=== PATIENT | female | born 1985 | race Caucasian/White ===

== ENCOUNTER → 2018-01-11 | Outpatient (CLI) | payer BC ==
[~2018-01-11] VITALS: Ht 160 cm; Wt 111.1 kg
[~2018-01-11] MED LIST: ATIVAN0.5 MG PO; CELEXA20 MG PO; ENDOCET 5-3251 EACH PO; MICROGESTIN FE1 EACH PO; MOTRIN800 MG PO; PAXIL20 MG PO; PREFERA-OB P1 TABLET PO; PRENATAL TABLE1 EAC3 PO; PRILOSEC20 MG PO; TYLENOL EXTRA500 MG PO; WOMEN'S MULTI200 MCG PO; YAZ 28 TABLET1 EACH PO
== END | disposition home or self-care (01) ==
LOC: AMB 09:51
PROC: 0DJ08ZZ Inspection of Upper Intestinal Tract, Via Natural or Artificial Opening Endoscopic (ICD-10-PCS; principal; 2018-01-11)
DX: Z01.818 Encounter for other preprocedural examination (principal); K21.9 Gastro-esophageal reflux disease without esophagitis; K44.9 Diaphragmatic hernia without obstruction or gangrene; K31.7 Polyp of stomach and duodenum; E66.01 Morbid (severe) obesity due to excess calories; Z68.41 Body mass index [BMI] 40.0-44.9, adult; F32.9 Major depressive disorder, single episode, unspecified; F41.9 Anxiety disorder, unspecified

== ENCOUNTER 2018-03-01 09:23 | Inpatient (IN) | payer BC ==
[~2018-03-01] VITALS: Ht 160 cm; Wt 108.9 kg
[2018-04-25 11:14] VITALS: BP 120/70
[2018-04-25] MEDS ORDERED: ACTIGALL300 MG PO (18:12)
[2018-04-25] MEDS ORDERED: DILAUDID4 MG PO (18:12)
[2018-04-25] MEDS ORDERED: COLACE100 MG PO (18:12)
[2018-04-25] MEDS ORDERED: ZOFRAN ODT8 MG PO (18:12)
[2018-04-25] MEDS ORDERED: PRILOSEC20 MG PO (18:12)
[2018-04-25 19:44] VITALS: BP 140/89
[2018-04-25 23:44] VITALS: BP 120/78
[2018-04-26 04:05] VITALS: BP 131/71
[2018-04-26 06:12] LABS: HEMATOCRIT 39.2 % (36.0-46.0); MCH 27.8 PG (29.0-34.0); MCHC 33.2 G/DL (30.0-36.0); MCV 83.9 FL (83-99); PLATELET COUNT 337 K/uL (156-360); RBC DIS.WIDTH-CV 13.2 % (11.8-14.6); RBC DIS.WIDTH-SD 39.7 % (39-53); RED BLOOD COUNT 4.67 M/uL (3.80-5.20); WHITE BLOOD COUNT 15.4 K/uL (4.1-10.2)
[2018-04-26 06:34] LABS: CHLORIDE 100 MEQ/L (99-109); CREATININE 0.5 MG/DL (0.6-1.3); GFR ESTIMATE (CALCULATED) > 59 mL/min/; GLUCOSE 110 mg/dL (70-99); POTASSIUM 4.2 MEQ/L (3.7-5.4); SODIUM 133 MEQ/L (136-147); UREA NITROGEN (BUN) 5 mg/dL (9-23)
[2018-04-26 09:08] VITALS: BP 134/75
[2018-04-26 11:51] VITALS: BP 116/72
[2018-04-26 15:30] VITALS: BP 154/82
[2018-04-26 19:23] VITALS: BP 135/79
[2018-04-26 23:55] VITALS: BP 148/80
[2018-04-27 03:56] VITALS: BP 135/78
[2018-04-27 06:10] LABS: HEMATOCRIT 39.6 % (36.0-46.0); MCH 27.1 PG (29.0-34.0); MCHC 32.8 G/DL (30.0-36.0); MCV 82.5 FL (83-99); PLATELET COUNT 354 K/uL (156-360); RBC DIS.WIDTH-CV 13.4 % (11.8-14.6); RBC DIS.WIDTH-SD 39.6 % (39-53); WHITE BLOOD COUNT 12.1 K/uL (4.1-10.2)
[2018-04-27 06:37] LABS: CHLORIDE 103 MEQ/L (99-109); CREATININE 0.6 MG/DL (0.6-1.3); GFR ESTIMATE (CALCULATED) > 59 mL/min/; GLUCOSE 91 mg/dL (70-99); POTASSIUM 4.3 MEQ/L (3.7-5.4); SODIUM 136 MEQ/L (136-147); UREA NITROGEN (BUN) 3 mg/dL (9-23)
[2018-04-27 06:57] VITALS: BP 143/67
== END 2018-04-27 11:04 | disposition home or self-care (01) | DRG 620 ==
LOC: 2SOUTH → ENRESERV 04-24 22:05 → 2SOUTH 04-25 10:19 → ENRESERV 04-25 14:48 → 2EAST 04-25 19:21
PROVIDERS: Surgery
PROC: 0DB64Z3 Excision of Stomach, Percutaneous Endoscopic Approach, Vertical (ICD-10-PCS; principal; 2018-04-25)
DX: E66.01 Morbid (severe) obesity due to excess calories (principal); Z68.41 Body mass index [BMI] 40.0-44.9, adult; K95.89 Other complications of other bariatric procedure; R11.0 Nausea; K21.9 Gastro-esophageal reflux disease without esophagitis; K44.9 Diaphragmatic hernia without obstruction or gangrene; F32.9 Major depressive disorder, single episode, unspecified; F41.9 Anxiety disorder, unspecified
CPT/HCPCS: 80048; 85027; 86850; 86900; 86901; 88304; C9113; J1170; J1644; J2250; J2405; J2765; J3010; J3480; Q0175; S0074